=== PATIENT | female | born 1965 | race Caucasian/White ===

== ENCOUNTER 2019-05-09 07:51 | Outpatient (CLI) | payer OTHER ==
--- NOTE | 2019-05-28 17:00 | MMO ---
Bilateral MAMMO Bilat Screen [facility]. CLINICAL HISTORY: Patient is 54 years old and is seen for screening. The patient has no family history of breast cancer. The patient has no personal history of cancer. The patient has a history of Explantation in 2007, Implants in 2007 and Implants in 1998. VIEWS: The views performed were: bilateral craniocaudal with tomosynthesis and bilateral mediolateral oblique with tomosynthesis. This study has been interpreted with the assistance of computer-aided detection. MAMMOGRAM FINDINGS: There are scattered fibroglandular densities. Normal implants are present. Benign calcifications are noted bilaterally. There are no suspicious masses, suspicious calcifications, or new areas of architectural distortion. IMPRESSION: THERE IS NO MAMMOGRAPHIC EVIDENCE OF MALIGNANCY. A ROUTINE FOLLOW-UP MAMMOGRAM IN 1 YEAR IS RECOMMENDED. THE RESULTS OF THIS EXAM WERE SENT TO THE PATIENT. ACR BI-RADS Category 2 - Benign finding MAMMOGRAPHY NOTE: 1. A negative mammogram report should not delay a biopsy if a dominant of clinically suspicious mass is present. 2. Approximately 10% to 15% of breast cancers are not detected by mammography. 3. Adenosis and dense breasts may obscure an underlying neoplasm. Reported by: PAO GILMORE MD Electonically Signed: [id number]
== END 2019-05-09 07:52 | disposition home or self-care (01) ==
LOC: BICMAMMO 07:51
PROVIDERS: ATTEND Family Medicine
DX: Z12.31 Encounter for screening mammogram for malignant neoplasm of breast (principal); Z98.82 Breast implant status
CPT/HCPCS: 77063; 77067

== ENCOUNTER 2019-06-10 06:23 | Outpatient (CLI) | payer OTHER ==
[2019-06-10 09:52] LABS: #Basophils 0.1 thou/uL (0.0-0.2); #Eosinphils 0.1 thou/uL (0.0-0.7); #Lymphocytes 1.8 thou/uL (1.20-3.40); #Monocytes 0.5 thou/uL (0.11-0.59); #Neutrophils 4.2 thou/uL (1.40-6.50); %Basophils 1.1 % (0.0-1.0); %Eosinophils 1.6 % (0.0-10.0); %Lymphocytes 27.1 % (21.0-51.0); %Monocytes 6.9 % (0.0-10.0); %Neutrophils 63.4 % (42.0-75.0); Hemoglobin 12.5 g/dL (12.0-16.0); Mean Corpuscular HGB CONC 34.1 g/dL (32.0-36.0); Mean Corpuscular Hemoglobin 30.9 pg (27.0-31.0); Mean Corpuscular Volume 90.8 fL (78.0-98.0); Mean Platelet Volume 7.4 fL (7.4-10.4); Platelet Count 265 thou/uL (130-400); RBC Distribution Width 11.1 % (11.5-14.5); Red Blood Cell (RBC) Count 4.05 mill/uL (4.20-5.40); White Blood Cell (WBC) Count 6.6 thou/uL (4.8-10.8)
[2019-06-10 10:14] LABS: Anion Gap 12 mmol/L (10-20); BUN (Urea Nitrogen) 9 mg/dL (9.8-20.1); Calc. Creatinine Clearance 0 mL/min (70-130); Calcium 9.7 mg/dL (7.8-10.44); Carbon Dioxide 26 mmol/L (22-29); Chloride 103 mmol/L (98-107); Estimated GFR-MDRD 87; Glucose 94 mg/dL (70-105); Potassium 3.9 mmol/L (3.5-5.1); Sodium 137 mmol/L (136-145)
== END 2019-06-10 06:24 | disposition home or self-care (01) ==
LOC: LABBT 06:23
PROVIDERS: ATTEND Orthopaedic Surgery
DX: Z01.818 Encounter for other preprocedural examination (principal); M23.41 Loose body in knee, right knee
CPT/HCPCS: 80048; 85025; 93005; 93010

== ENCOUNTER 2019-06-12 05:49 | Day surgery (SDC) | payer OTHER ==
[2019-06-10 08:36] VITALS: BMI 25.1
[2019-06-12] MEDS ORDERED: Bupivacaine/Epinephrine 0.25% 30 ML VIAL ONE (06:53)
[2019-06-12] MEDS ORDERED: Bupivacaine HCl 0.5%/Epinephrine 1:200,000/PF 30 ml Vial ONE (06:53)
[2019-06-12] MEDS ORDERED: Fentanyl 100 MCG/2 ML VIAL ONE (07:39)
--- NOTE | 2019-06-12 10:38 | OP ---
DATE OF PROCEDURE: 06/12/2019 PREOPERATIVE DIAGNOSIS: Arthritic change, right knee, with multiple small cartilaginous loose bodies and unstable chondral flaps. POSTOPERATIVE DIAGNOSES: Arthritic change, right knee, with multiple small cartilaginous loose bodies and unstable chondral flaps, areas include grade 3 and 4 changes to the lateral tibial plateau, lateral femoral condyle, the trochlea, and the patella. The patient also noted to have an impinging osteophyte on the anterior tibia. PROCEDURES PERFORMED: Right knee arthroscopy, debridement, and shaving. MANAGER FRONT: None. ESTIMATED BLOOD LOSS: Minimal. COMPLICATIONS: None. ANESTHESIA: The patient did have a general anesthetic with a local knee block. DISPOSITION: She went back to Day Stay in stable condition. INDICATIONS: A 54-year-old active female who has been having problems for years and continues to have pain, catching, and swelling of the knee. MRI showed multiple areas of chondral damage in the knee, and at this time, we feel that she would benefit from cleaning up the knee to rid her off her effusions and sharp pain. DESCRIPTION OF PROCEDURE: After all appropriate consent forms were explained and signed, she was taken to the operative room and at this time was given general anesthetic. Once the level of anesthesia was appropriate, a tourniquet was placed on the right thigh and the leg was then placed in the arthroscopic leg landa. The limb was then prepped and draped in standard surgical fashion. Limb was exsanguinated and tourniquet was taken up to 250 mmHg. At this time, an inferolateral portal was established. Scope was placed into the knee joint. A needle localization was then used to make our medial working portal and diagnostic arthroscopy commenced in the notch. ACL and PCL were probed and found to be intact. There was impinging osteophyte at the base of the ACL. This was taken down with a shaver. The medial compartment was evaluated and was felt to be intact including the articular cartilage of the femur and tibia as well as the medial meniscus. The lateral compartment showed the lateral meniscus to be intact, Popliteus was intact, overall, the femur was in good condition; however, there was a large area of grade 3 and 4 chondral wear right in the middle of the tibial plateau. Unstable chondral flaps were noted and debrided back to a stable base. There were also multiple small cartilaginous bodies found underneath the meniscus. At this time, we swept through both gutters, and while there were osteophytes noted both sides on the lateral side, there was a couple small pieces of cartilage, which again were removed with a shaver. The patellofemoral joint was then evaluated and she was found to have a large area of grade 4 changes on the patella with minimal unstable cartilage flaps; however, the trochlea had a lot of unstable cartilage flaps with grade 4 and 3 changes throughout. All unstable chondral flaps were debrided, leaving all viable good cartilage alone. We went through the knee, making sure we washed it out thoroughly. We then removed the scope, drained the knee, closed these portals with simple nylon stitch. Bulky sterile dressing was then applied and the tourniquet was let down. Toes pinked up nicely. The patient was awakened. She was taken to recovery room in stable condition. All counts were correct at the end of the case and she received preoperative IV antibiotics. Job ID: [id number]
== END 2019-06-12 10:00 | disposition home or self-care (01) ==
LOC: SDC 05:49
PROVIDERS: ATTEND Orthopaedic Surgery
PROC: 0SBC4ZZ Excision of Right Knee Joint, Percutaneous Endoscopic Approach (ICD-10-PCS; principal; 2019-06-12)
DX: M17.11 Unilateral primary osteoarthritis, right knee (principal); Z79.899 Other long term (current) drug therapy
CPT/HCPCS: J0670; J0690; J3010

== ENCOUNTER 2019-06-17 09:45 | Emergency (ER) | payer OTHER ==
--- NOTE | 2019-06-17 11:32 | ULT ---
DOPPLER DUPLEX VENOUS ULTRASOUND RIGHT LOWER EXTREMITY: CPT: 20468 ICD-10-PCS: B54D INDICATIONS: Pain. Edema. TECHNIQUE: Color-flow Doppler, spectral wave-form analysis of pulsed Doppler, and garnica-scale imaging with compre ssion and augmentation, were used to evaluate the bilateral common femoral, femoral, popliteal, poste rior tibial and superficial femoral, veins and the proximal portions of the profunda femoral and grea ter saphenous veins. FINDINGS: There is appropriate compressibility and flow within the imaged deep venous system of the right lower extremity. IMPRESSION: No deep venous thrombosis. POS: [facility]
[2019-06-17] MEDS ORDERED: HYDROcodone/Acetaminophen 5/325 mg Tablet ONE (12:57)
[2019-06-17] MEDS ORDERED: Ketorolac Tromethamine 30 MG/ML VIAL ONE (13:01)
== END 2019-06-17 13:24 | disposition home or self-care (01) ==
LOC: ERS 09:45
DX: S80.11XA Contusion of right lower leg, initial encounter (principal); G89.18 Other acute postprocedural pain; E03.9 Hypothyroidism, unspecified; Z79.899 Other long term (current) drug therapy; X58.XXXA Exposure to other specified factors, initial encounter
CPT/HCPCS: 96372; J1885

== ENCOUNTER 2020-03-24 11:55 | Emergency (ER) | payer OTHER ==
[2020-03-24] MEDS ORDERED: Morphine 4 MG/ML VIAL ONE (12:40)
--- NOTE | 2020-03-24 12:53 | RAD ---
EXAM: 4 views of the right knee HISTORY: Knee pain and posterior thigh pain COMPARISON: None FINDINGS: No knee effusion is seen. There is no evidence of acute fracture or dislocation. No signifi cant degenerative changes are seen. No soft tissue swelling is present. IMPRESSION: No evidence of acute osseous abnormality.
== END 2020-03-24 14:17 | disposition home or self-care (01) ==
LOC: ERS 11:55
DX: S76.311A Strain of muscle, fascia and tendon of the posterior muscle group at thigh level, right thigh, initial encounter (principal); E03.9 Hypothyroidism, unspecified; Z79.899 Other long term (current) drug therapy; X50.1XXA Overexertion from prolonged static or awkward postures, initial encounter
CPT/HCPCS: 96372; J2270

== ENCOUNTER 2020-04-30 07:48 | Outpatient (CLI) | payer BC, OTHER ==
[2020-04-30 14:29] LABS: INR-International Normal Ratio 0.9; Prothrombin Time 12.5 sec (12.0-14.7)
[2020-04-30 14:36] LABS: #Eosinphils 0.1 thou/uL (0.0-0.7); #Lymphocytes 2.1 thou/uL (1.20-3.40); #Monocytes 0.4 thou/uL (0.11-0.59); #Neutrophils 2.7 thou/uL (1.40-6.50); %Basophils 0.3 % (0.0-1.0); %Eosinophils 2.5 % (0.0-10.0); %Lymphocytes 39.9 % (21.0-51.0); %Monocytes 7.3 % (0.0-10.0); Hemoglobin 13.8 g/dL (12.0-16.0); Mean Corpuscular Hemoglobin 31.5 pg (27.0-31.0); Mean Platelet Volume 7.7 fL (7.4-10.4); Platelet Count 307 thou/uL (130-400); RBC Distribution Width 11.1 % (11.5-14.5); Red Blood Cell (RBC) Count 4.37 mill/uL (4.20-5.40); White Blood Cell (WBC) Count 5.3 thou/uL (4.8-10.8)
[2020-04-30 14:48] LABS: Bacteria/HPF None Seen HPF (None Seen); Bilirubin Negative (Negative); Blood, Urine Negative (Negative); Clarity Clear (Clear); Glucose, Urine (Dipstick) Normal (Negative); Ketone, Urine Negative (Negative); Leukocyte 25 Leu/uL (Negative); Nitrite Negative (Negative); Protein, Urine (Dipstick) Negative (Neg-Trace); RBC/HPF 0-3 HPF (0-3); Specific Gravity, Urine 1.006 (1.002-1.036); Squamous Epithelial 0-3 HPF (0-3); Urobilinogen Normal mg/dL (Less than 2); WBC/HPF 0-3 HPF (0-3); pH, Urine 7.5 (5.0-9.0)
[2020-04-30 15:15] LABS: Anion Gap 16 mmol/L (10-20); BUN (Urea Nitrogen) 13 mg/dL (9.8-20.1); Calc. Creatinine Clearance 0 mL/min (70-130); Calcium 10.1 mg/dL (7.8-10.44); Carbon Dioxide 25 mmol/L (22-29); Chloride 101 mmol/L (98-107); Estimated GFR-MDRD 79; Glucose 91 mg/dL (70-105); Potassium 4.5 mmol/L (3.5-5.1); Sodium 137 mmol/L (136-145)
[2020-05-01 12:32] LABS: SARS-CoV-2 MS2 Positive; SARS-CoV-2 N Gene Negative; SARS-CoV-2 S Gene Negative; SARS-CoV-2 by NAA Not Detected (NotDetected); SARS-CoV-2 orf1ab Negative
--- NOTE | 2020-05-03 16:04 | EKG ---
Test Reason : Blood Pressure : / mmHG Vent. Rate : 087 BPM Atrial Rate : 087 BPM P-R Int : 136 ms QRS Dur : 076 ms QT Int : 364 ms P-R-T Axes : 075 084 077 degrees QTc Int : 438 ms Normal sinus rhythm Septal infarct , age undetermined Abnormal ECG No previous ECGs available Confirmed by Liang GONZALEZ ([id number]) on 05/03/2020 4:03:51 PM Referred By: ALLA Confirmed By:Liang GONZALEZ
== END 2020-04-30 07:49 | disposition home or self-care (01) ==
LOC: LABBT 07:48
PROVIDERS: ATTEND Orthopaedic Surgery
DX: Z01.818 Encounter for other preprocedural examination (principal); Z20.828 Contact with and (suspected) exposure to other viral communicable diseases; M17.11 Unilateral primary osteoarthritis, right knee
CPT/HCPCS: 80048; 81001; 85025; 85610; 87081; 87635; 93005; 93010; U0003

== ENCOUNTER 2020-05-04 05:30 | Day surgery (SDC) | payer BC, OTHER ==
[2020-04-30 09:18] VITALS: BMI 25.1
[2020-05-04] MEDS ORDERED: Bupivacaine PF 0.5% 30 ML VIAL ONE (06:28)
[2020-05-04] MEDS ORDERED: Vancomycin 1 GM/200 ML BAG ONE (06:30)
[2020-05-04] MEDS ORDERED: Sodium Chloride 0.9% 100 ML ONE (06:30)
[2020-05-04] MEDS ORDERED: Tranexamic Acid 1,000 MG/10 ML VIAL ONE ×2 (06:30→09:34)
[2020-05-04] MEDS ORDERED: Midazolam HCl 2 mg/2 ml Vial ONE ×2 (06:39→07:21)
[2020-05-04] MEDS ORDERED: Lidocaine 1% (PF) 30 ML VIAL ONE (06:39)
[2020-05-04] MEDS ORDERED: Fentanyl 100 MCG/2 ML VIAL ONE ×6 (06:39→10:12)
[2020-05-04] MEDS ORDERED: diphenhydrAMINE 25 MG CAP PO PRN ×2 (07:07→10:30)
[2020-05-04] MEDS ORDERED: Acetaminophen 325 MG TAB PO PRN ×2 (07:07→07:44)
[2020-05-04] MEDS ORDERED: traMADol HCl 50 MG TAB PO PRN ×3 (07:07→07:44)
[2020-05-04] MEDS ORDERED: Ondansetron PF 4 MG/2 ML Vial IVP PRN ×3 (07:07→10:30)
[2020-05-04] MEDS ORDERED: Zolpidem Tartrate 5 MG TAB PO PRN ×3 (07:07→10:30)
[2020-05-04] MEDS ORDERED: HYDROcodone/Acetaminophen 10/325 mg Tablet PO PRN ×4 (07:07→07:44)
[2020-05-04] MEDS ORDERED: Promethazine HCl 25 MG/ML VIAL IM PRN ×3 (07:07→10:30)
[2020-05-04] MEDS ORDERED: Fentanyl 100 MCG/2 ML VIAL SLOW IVP PRN (07:07)
[2020-05-04] MEDS ORDERED: Tranexamic Acid 1,000 MG in Sodium Chloride 0.9% 100 ML IVPB SCH (07:15)
[2020-05-04] MEDS ORDERED: Ropivacaine HCl/PF 250 ML in Premix Bag 1 BAG NERVE BLCK SCH (07:44)
[2020-05-04] MEDS ORDERED: Fentanyl 100 MCG/2 ML VIAL IV PRN (07:45)
[2020-05-04] MEDS ORDERED: Multivitamin W/ Minerals 1 TAB PO SCH (09:00)
[2020-05-04] MEDS ORDERED: Meperidine HCl/PF 25 MG/ML VIAL ONE (09:16)
[2020-05-04] MEDS ORDERED: Ropivacaine 0.2% HCl/PF (40 MG/20 ML VIAL) ONE (09:19)
[2020-05-04] MEDS ORDERED: Dexamethasone 20 MG/5 ML VIAL ONE (09:19)
[2020-05-04] MEDS ORDERED: Ketorolac Tromethamine 30 MG/ML VIAL ONE (09:19)
[2020-05-04] MEDS ORDERED: PROPOFOL 200 MG/20 ML VIAL ONE (09:19)
[2020-05-04] MEDS ORDERED: Bupivacaine HCl 0.5%/Epinephrine 1:200,000/PF 30 ml Vial ONE (09:19)
[2020-05-04] MEDS ORDERED: Ondansetron PF 4 MG/2 ML Vial ONE (09:19)
[2020-05-04] MEDS ORDERED: Lidocaine 1% PF 5 ML VIAL ONE (09:19)
[2020-05-04] MEDS ORDERED: HYDROmorphone 0.5 MG/0.5 ML SYRINGE ONE ×4 (10:26→11:02)
[2020-05-04] MEDS ORDERED: HYDROmorphone 10 mg/100 ml CADD IVPB PRN (10:30)
[2020-05-04] MEDS ORDERED: Communication Order-Pharmacy FS SCH (10:30)
[2020-05-04] MEDS ORDERED: diphenhydrAMINE 50 MG/ML VIAL IM PRN (10:30)
[2020-05-04] MEDS ORDERED: Naloxone HCl 0.4 mg/ml Vial IV PRN (10:30)
[2020-05-04] MEDS ORDERED: diphenhydrAMINE 50 MG/ML VIAL IVP PRN (10:30)
[2020-05-04] MEDS ORDERED: Ketorolac Tromethamine 30 MG/ML VIAL IVP SCH (12:00)
[2020-05-04] MEDS: Multivitamin W/ Minerals 1 TAB PO SCH (13:09)
[2020-05-04] MEDS: Sodium Chloride 0.9% 1,000 ML IV SCH ×2 (14:17→14:26)
[2020-05-04] MEDS: Ketorolac Tromethamine 30 MG/ML VIAL IVP SCH ×2 (14:18→21:12)
[2020-05-04] MEDS: CEFAZOLIN 2 GM in Premix Bag 1 BAG IVPB SCH ×2 (14:20→23:40)
[2020-05-04] MEDS ORDERED: Vancomycin 1 GM in Premix Bag 1 BAG IVPB SCH (19:00)
[2020-05-04] MEDS: Aspirin 81 mg Enteric Coated Tablet PO SCH (21:12)
[2020-05-04] MEDS: Ferrous Gluconate 324 MG TAB PO SCH (21:12)
[2020-05-04] MEDS: Polyethylene Glycol 3350 17 GM Packet PO SCH (21:12)
[2020-05-04] MEDS: Senokot S 8.6-50 MG TAB PO SCH (21:12)
[2020-05-05 05:21] LABS: Hemoglobin 10.1 g/dL (12.0-16.0); Mean Corpuscular HGB CONC 33.4 g/dL (32.0-36.0); Mean Corpuscular Hemoglobin 30.9 pg (27.0-31.0); Mean Corpuscular Volume 92.7 fL (78.0-98.0); Mean Platelet Volume 7.3 fL (7.4-10.4); Platelet Count 219 thou/uL (130-400); Red Blood Cell (RBC) Count 3.25 mill/uL (4.20-5.40); White Blood Cell (WBC) Count 6.7 thou/uL (4.8-10.8)
[2020-05-05] MEDS: HYDROmorphone 10 mg/100 ml CADD IV PRN ×2 (05:40→20:11)
[2020-05-05] MEDS: Ketorolac Tromethamine 30 MG/ML VIAL IVP SCH ×3 (05:47→22:34)
[2020-05-05] MEDS ORDERED: Levothyroxine Sodium 75 MCG TAB PO SCH (06:00)
[2020-05-05] MEDS: Sodium Chloride 0.9% 1,000 ML IV SCH ×2 (07:44→12:57)
[2020-05-05] MEDS: Multivitamin W/ Minerals 1 TAB PO SCH (08:28)
[2020-05-05] MEDS: Senokot S 8.6-50 MG TAB PO SCH ×2 (08:28→20:02)
[2020-05-05] MEDS: Aspirin 81 mg Enteric Coated Tablet PO SCH ×2 (08:28→20:02)
[2020-05-05] MEDS: Polyethylene Glycol 3350 17 GM Packet PO SCH ×2 (08:28→20:02)
[2020-05-05] MEDS: Ferrous Gluconate 324 MG TAB PO SCH ×2 (08:28→20:02)
--- NOTE | 2020-05-05 17:30 | OP ---
DATE OF PROCEDURE: 05/04/2020 PREOPERATIVE DIAGNOSIS: Right knee osteoarthrosis. POSTOPERATIVE DIAGNOSIS: Right knee osteoarthrosis. PROCEDURE PERFORMED: Right total knee replacement using [employer] pinless navigation. MUD ANALYSIS WELL LOGGING OPERATOR: Elvin Sullivan PA-C [employer] surgeon was present throughout the procedure, including the approach, placement of the implants, and the closure. ESTIMATED BLOOD LOSS: Minimal. COMPLICATIONS: None. ANESTHESIA: She did have a general anesthetic. She had a preoperative block. IMPLANTS: To the right knee, [employer] total knee system, femur size 5 right cruciate-retaining femur, tibia was a size 4 primary tibial baseplate with a 4 x 9 mm CS X3 tibial poly and a symmetric 27 x 8 X3 patella. TOURNIQUET TIME: DISPOSITION: She went to recovery room in stable condition. INDICATIONS: This 55-year-old female, who has failed nonoperative treatment including arthroscopy, injections, and therapy. At this time, she opted to have her knee replaced. DESCRIPTION OF PROCEDURE: After all appropriate consent forms were explained and signed, the patient was taken back to the operating room and at this time was given general anesthetic. Once the level of anesthesia was appropriate, a well-padded tourniquet was placed on the right leg, and the leg was then prepped and draped in standard surgical fashion. The limb was exsanguinated and tourniquet taken up to 300 mmHg. Midline incision was made with a 10 blade down through the skin and subcutaneous tissue. Bovie electrocautery was used to coagulate any brisk venous bleeding. A new blade was used to make a medial parapatellar arthrotomy. Small subperiosteal release was performed medially and excess fat pad was removed. The knee was flexed up to gain access to the femur. The femur was navigated and distal femoral resection was made. Epicondylar access was used to align our sizing jig and this was pinned in place. We sized our femur to be a size 5 right cruciate-retaining femur. 4:1 cutting block was applied and pinned. Anterior and posterior chamfer cuts were then made. We navigated out our proximal tibia and made our proximal tibial resection. Spreaders were used to remove any posterior osteophytes off the back of the femur as well as remaining meniscal tissue. A long alignment tremayne was then used to achieve correct rotation of our tibial baseplate and a size 4 primary tibial baseplate was chosen. This was pinned in place. We trialed the polyethylene and a 4 x 9 mm CS X3 tibial polyethylene gave us full extension and good stability throughout range of motion. Two towel clips and a saw were used to cut our patella. Three lug nuts were drilled and symmetric 27 x 8 X3 patella was trialed which sat nicely in the trochlear groove. We then drilled our femur and punched our tibia. All components were removed. The knee was thoroughly irrigated and dried. Cement was mixed into the cement gun on the back table. Components were then placed. The knee was held out in full extension until the cement had dried. All excess bone cement was removed. Multiple #2 Vicryl stitches as well as a Quill were used to close our extensor mechanism. 0 Quill followed by a running Monoderm was then used to close the skin. Surgicel glue was then used on the skin. Once this had dried, soft tissue dressing was applied to the limb, tourniquet was let down, and the toes pinked up nicely. The patient was then awakened and taken to the recovery room in stable condition. All counts were correct at the end of the case. The patient did receive preoperative IV antibiotics. The patient was injected with Marcaine for postoperative pain relief. Job ID: [id number] [facility]
[2020-05-05] MEDS ORDERED: Simethicone Chewable 80 MG TAB PO PRN (17:45)
[2020-05-06] MEDS: Sodium Chloride 0.9% 1,000 ML IV SCH (00:53)
[2020-05-06 07:07] LABS: Hemoglobin 9.9 g/dL (12.0-16.0); Mean Corpuscular HGB CONC 33.8 g/dL (32.0-36.0); Mean Corpuscular Volume 91.9 fL (78.0-98.0); Mean Platelet Volume 7.4 fL (7.4-10.4); Platelet Count 212 thou/uL (130-400); RBC Distribution Width 10.9 % (11.5-14.5); Red Blood Cell (RBC) Count 3.18 mill/uL (4.20-5.40); White Blood Cell (WBC) Count 6.1 thou/uL (4.8-10.8)
[2020-05-06] MEDS ORDERED: HYDROcodone/Acetaminophen 10/325 mg Tablet PO PRN ×2 (10:57→10:58)
[2020-05-06] MEDS ORDERED: traMADol HCl 50 MG TAB PO PRN (10:58)
--- NOTE | 2020-05-06 11:57 | PRG ---
DATE OF SERVICE: 05/05/2020 SUBJECTIVE: Marie Treadwell is a 55-year-old female, postop day #1 from a right total knee arthroplasty. She is doing relatively well. She has no complaints. She has already ambulated up to 250 feet independently. OBJECTIVE: VITAL SIGNS: Temperature 98.7, pulse 90, respiratory rate 16 and nonlabored, O2 saturation 95% on room air, blood pressure 102/65. GENERAL: She is alert and oriented to person, place, time, and situation. Responsive and appropriate with examiner, conversive, polite. EXTREMITIES: Incision is clean. No strikethrough. No erythema. No malrotation. She is neurovascularly intact in the right lower extremity. LABORATORY DATA: Hemoglobin and hematocrit of 10.1 and 30.1. IMPRESSION: A 55-year-old female, postop day #1 right total knee arthroplasty, doing well. PLAN: Continue current care. Expected discharge, tomorrow. Job ID: [id number]
[2020-05-06 12:27] VITALS: BP 116/79; TEMP 98
== END 2020-05-06 15:18 | disposition home or self-care (01) ==
LOC: SDC 05:30 → SJJU 07:07 → EDSTATUS 10:15 → SDC 05-06 15:18
PROVIDERS: ATTEND Orthopaedic Surgery
PROC: 8E0YXBZ Computer Assisted Procedure of Lower Extremity (ICD-10-PCS; principal; 2020-05-04)
PROC: 0SRC0JZ Replacement of Right Knee Joint with Synthetic Substitute, Open Approach (ICD-10-PCS; principal; 2020-05-04)
DX: M17.11 Unilateral primary osteoarthritis, right knee (principal); Z79.899 Other long term (current) drug therapy
CPT/HCPCS: 36415; 85027; C1713; C1776; J0670; J0690; J1100; J1170; J1885; J2001; J2175; J2250; J2405; J2704; J2795; J3010; J3370; J3490; S0020

== ENCOUNTER 2020-12-09 08:30 | Outpatient (CLI) | payer BC, OTHER | END 2020-12-09 08:31 | disposition home or self-care (01) | LOC: BICMAMMO 08:30 | PROVIDERS: ATTEND Internal Medicine | DX: Z12.31 Encounter for screening mammogram for malignant neoplasm of breast (principal) | CPT/HCPCS: 77063; 77067 ==

== ENCOUNTER 2021-05-17 09:48 | Outpatient (CLI) | payer BC, OTHER | END 2021-05-17 09:49 | disposition home or self-care (01) | LOC: BICMRI 09:48 | PROVIDERS: ATTEND Anesthesiology | DX: M47.26 Other spondylosis with radiculopathy, lumbar region (principal) | CPT/HCPCS: 72148 ==

== ENCOUNTER 2021-07-06 07:56 | Outpatient (CLI) | payer BC, OTHER | END 2021-07-06 07:57 | disposition home or self-care (01) | LOC: BICMRI 07:56 | PROVIDERS: ATTEND Orthopaedic Surgery | DX: M23.92 Unspecified internal derangement of left knee (principal); S83.242A Other tear of medial meniscus, current injury, left knee, initial encounter; S83.282A Other tear of lateral meniscus, current injury, left knee, initial encounter; M22.2X2 Patellofemoral disorders, left knee; M25.462 Effusion, left knee; M71.22 Synovial cyst of popliteal space [Baker], left knee ==

== ENCOUNTER 2021-07-28 13:19 | Outpatient (CLI) | payer BC, OTHER ==
[2021-07-28 14:12] LABS: Bilirubin Neg (Negative); Blood, Urine Negative (Negative); Glucose, Urine (Dipstick) Normal (Negative); Ketone, Urine Negative (Negative); Leukocyte Negative (Negative); Nitrite Negative (Negative); Protein, Urine (Dipstick) Negative (Neg-Trace); Urobilinogen Normal mg/dL (Less than 2)
[2021-07-28 14:13] LABS: Clarity Clear (Clear)
[2021-07-28 14:15] LABS: #Eosinphils 0.1 10x3/uL (0.0-0.5); #Monocytes 0.5 10x3/uL (0.0-1.1); #Neutrophils 2.3 10x3/uL (1.5-8.4); %Basophils 0.4 % (0.0-2.0); %Eosinophils 1.3 % (0.0-6.0); %Lymphocytes 46.5 % (18.0-47.0); %Monocytes 8.5 % (0.0-10.0); %Neutrophils 43.1 % (40.0-75.0); Hemoglobin 11.8 g/dL (12.0-15.5); Mean Corpuscular Hemoglobin 30.1 pg (27.0-33.0); Mean Corpuscular Volume 88.5 fl (81.6-98.3); Mean Platelet Volume 9.6 fl (7.4-10.4); Platelet Count 297 10x3/uL (150-450); RBC Distribution Width 11.9 % (11.5-14.5); Red Blood Cell (RBC) Count 3.92 10x6/uL (3.90-5.03); White Blood Cell (WBC) Count 5.3 10x3/uL (3.5-10.5)
[2021-07-28 14:29] LABS: Anion Gap 13 mmol/L (10-20); BUN (Urea Nitrogen) 13 mg/dL (9.8-20.1); Calc. Creatinine Clearance 0 mL/min (70-130); Calcium 9.7 mg/dL (7.8-10.44); Carbon Dioxide 25 mmol/L (22-29); Chloride 105 mmol/L (98-107); Glucose 83 mg/dL (70-105); Potassium 4.2 mmol/L (3.5-5.1); Sodium 139 mmol/L (136-145)
[2021-07-28 14:34] LABS: Prothrombin Time 10.6 sec (9.5-12.1)
[2021-07-28 23:10] LABS: SARS-CoV-2 PCR by NAA Not Detected (NotDetected)
== END 2021-07-28 13:20 | disposition home or self-care (01) ==
LOC: LABBT 13:19
PROVIDERS: ATTEND Urology
DX: Z01.818 Encounter for other preprocedural examination (principal); M17.12 Unilateral primary osteoarthritis, left knee; Z20.822 Contact with and (suspected) exposure to COVID-19
CPT/HCPCS: 71046; 80048; 81003; 85025; 85610; 86850; 86900; 86901; 87081; 93005; 93010; U0003; U0005

== ENCOUNTER 2021-08-02 07:05 | Observation (INO) | payer BC, OTHER ==
[2021-07-28 14:12] LABS: Bilirubin Neg (Negative); Blood, Urine Negative (Negative); Glucose, Urine (Dipstick) Normal (Negative); Ketone, Urine Negative (Negative); Leukocyte Negative (Negative); Nitrite Negative (Negative); Protein, Urine (Dipstick) Negative (Neg-Trace); Urobilinogen Normal mg/dL (Less than 2)
[2021-07-28 14:13] LABS: Clarity Clear (Clear)
[2021-07-28 14:15] LABS: #Eosinphils 0.1 10x3/uL (0.0-0.5); #Monocytes 0.5 10x3/uL (0.0-1.1); #Neutrophils 2.3 10x3/uL (1.5-8.4); %Basophils 0.4 % (0.0-2.0); %Eosinophils 1.3 % (0.0-6.0); %Lymphocytes 46.5 % (18.0-47.0); %Monocytes 8.5 % (0.0-10.0); %Neutrophils 43.1 % (40.0-75.0); Hemoglobin 11.8 g/dL (12.0-15.5); Mean Corpuscular Hemoglobin 30.1 pg (27.0-33.0); Mean Corpuscular Volume 88.5 fl (81.6-98.3); Mean Platelet Volume 9.6 fl (7.4-10.4); Platelet Count 297 10x3/uL (150-450); RBC Distribution Width 11.9 % (11.5-14.5); Red Blood Cell (RBC) Count 3.92 10x6/uL (3.90-5.03); White Blood Cell (WBC) Count 5.3 10x3/uL (3.5-10.5)
[2021-07-28 14:29] LABS: Anion Gap 13 mmol/L (10-20); BUN (Urea Nitrogen) 13 mg/dL (9.8-20.1); Calc. Creatinine Clearance 0 mL/min (70-130); Calcium 9.7 mg/dL (7.8-10.44); Carbon Dioxide 25 mmol/L (22-29); Chloride 105 mmol/L (98-107); Glucose 83 mg/dL (70-105); Potassium 4.2 mmol/L (3.5-5.1); Sodium 139 mmol/L (136-145)
[2021-07-28 14:34] LABS: Prothrombin Time 10.6 sec (9.5-12.1)
[2021-07-28 23:10] LABS: SARS-CoV-2 PCR by NAA Not Detected (NotDetected)
[2021-07-29 13:44] VITALS: BMI 26.6
[2021-08-02] MEDS ORDERED: Tranexamic Acid 1,000 MG/10 ML VIAL ONE ×2 (07:33→12:03)
[2021-08-02] MEDS ORDERED: Sodium Chloride 0.9% 100 ML ONE (07:33)
[2021-08-02] MEDS ORDERED: ceFAZolin 2 GM/DEX 5% 100 ML BAG ONE (07:33)
[2021-08-02] MEDS ORDERED: Vancomycin HCl 1.5 GM in Sodium Chloride 0.9% 250 ML 300 ML IVPB SCH ×2 (07:45→21:00)
[2021-08-02] MEDS ORDERED: Fentanyl 100 MCG/2 ML VIAL ONE ×3 (08:02→11:37)
[2021-08-02] MEDS ORDERED: Midazolam HCl 2 mg/2 ml Vial ONE (08:02)
[2021-08-02] MEDS ORDERED: Bupivacaine PF 0.5% 30 ML VIAL ONE (09:13)
[2021-08-02] MEDS ORDERED: Ondansetron PF 4 MG/2 ML Vial ONE (09:35)
[2021-08-02] MEDS ORDERED: Lidocaine 1% PF 5 ML VIAL ONE (09:35)
[2021-08-02] MEDS ORDERED: Bupivacaine HCl 0.5%/Epinephrine 1:200,000/PF 30 ml Vial ONE (09:35)
[2021-08-02] MEDS ORDERED: Dexamethasone 20 MG/5 ML VIAL ONE (09:35)
[2021-08-02] MEDS ORDERED: PROPOFOL 200 MG/20 ML VIAL ONE (09:35)
[2021-08-02] MEDS ORDERED: diphenhydrAMINE 25 MG CAP PO PRN (09:57)
[2021-08-02] MEDS ORDERED: HYDROcodone/Acetaminophen 10/325 mg Tablet PO PRN ×3 (09:57→12:00)
[2021-08-02] MEDS ORDERED: traMADol HCl 50 MG TAB PO PRN ×3 (09:57→12:00)
[2021-08-02] MEDS ORDERED: Ondansetron PF 4 MG/2 ML Vial IVP PRN ×2 (09:57→12:00)
[2021-08-02] MEDS ORDERED: Zolpidem Tartrate 5 MG TAB PO PRN ×2 (09:57→12:00)
[2021-08-02] MEDS ORDERED: Fentanyl 100 MCG/2 ML VIAL SLOW IVP PRN ×2 (09:57→11:53)
[2021-08-02] MEDS ORDERED: Promethazine HCl 25 MG/ML VIAL IM PRN ×3 (09:57→12:00)
[2021-08-02] MEDS ORDERED: Acetaminophen 325 MG TAB PO PRN (09:57)
[2021-08-02] MEDS ORDERED: Tranexamic Acid 1,000 MG in Sodium Chloride 0.9% 100 ML IVPB SCH (10:00)
[2021-08-02] MEDS ORDERED: HYDROmorphone 2 MG/ML VIAL SLOW IVP PRN (11:32)
[2021-08-02] MEDS ORDERED: Ondansetron HCl/PF 4 MG/2 ML Vial IVP PRN (11:32)
[2021-08-02] MEDS ORDERED: Ketorolac Tromethamine 30 MG/ML VIAL IVP PRN (11:32)
[2021-08-02] MEDS ORDERED: Meperidine HCl/PF 25 MG/ML VIAL SLOW IVP PRN (11:32)
[2021-08-02] MEDS ORDERED: Promethazine HCl 25 MG/ML VIAL IVPB PRN (11:32)
[2021-08-02] MEDS ORDERED: Ketorolac Tromethamine 30 MG/ML VIAL ONE (11:37)
[2021-08-02] MEDS ORDERED: Bupivacaine 0.5% 10 ML VIAL ONE (11:59)
[2021-08-02] MEDS ORDERED: Ropivacaine 0.2% 550 ML 550 ML NERVE BLCK SCH (12:00)
[2021-08-02] MEDS ORDERED: HYDROmorphone 0.5 MG/0.5 ML SYRINGE ONE ×4 (12:03→12:37)
[2021-08-02] MEDS ORDERED: Ketorolac Tromethamine 30 MG/ML VIAL IVP SCH (14:00)
[2021-08-02] MEDS: Sodium Chloride 0.9% 1,000 ML IV SCH ×2 (14:37→20:35)
[2021-08-02] MEDS: Ketorolac Tromethamine 30 MG/ML VIAL IVP SCH ×3 (14:37→23:31)
[2021-08-02] MEDS: ceFAZolin Sodium/D5W 2 GM in Premix Bag 1 BAG IVPB SCH ×2 (15:12→23:29)
[2021-08-02] MEDS: HYDROcodone/Acetaminophen 10/325 mg Tablet PO PRN ×2 (15:12→20:36)
[2021-08-02] MEDS: Aspirin 81 mg Enteric Coated Tablet PO SCH (20:35)
[2021-08-02] MEDS: Gabapentin 300 MG CAP PO SCH (20:35)
[2021-08-03] MEDS: HYDROcodone/Acetaminophen 10/325 mg Tablet PO PRN ×3 (03:51→15:52)
[2021-08-03] MEDS: Ketorolac Tromethamine 30 MG/ML VIAL IVP SCH ×3 (05:11→18:24)
[2021-08-03] MEDS: Sodium Chloride 0.9% 1,000 ML IV SCH ×2 (05:12→16:20)
[2021-08-03 05:51] LABS: Mean Corpuscular HGB CONC 34.7 g/dL (32.0-36.0); Mean Corpuscular Hemoglobin 31.9 pg (27.0-31.0); Mean Platelet Volume 6.7 fL (7.4-10.4); Platelet Count 259 thou/uL (130-400); Red Blood Cell (RBC) Count 3.44 mill/uL (4.20-5.40); White Blood Cell (WBC) Count 9.9 thou/uL (4.8-10.8)
[2021-08-03] MEDS ORDERED: Levothyroxine Sodium 75 MCG TAB PO SCH (06:00)
[2021-08-03] MEDS: Aspirin 81 mg Enteric Coated Tablet PO SCH (08:59)
[2021-08-03] MEDS: Ferrous Gluconate 324 MG TAB PO SCH ×2 (08:59→18:23)
[2021-08-03] MEDS: Gabapentin 300 MG CAP PO SCH (09:00)
[2021-08-03] MEDS ORDERED: Non-Formulary Item 1 EACH (Multivitamin [Multi-Vitamin Daily] 1 TABLET Tablet) PO SCH (09:00)
[2021-08-03] MEDS ORDERED: Polyethylene Glycol 3350 17 GM Packet PO SCH (09:00)
[2021-08-03] MEDS ORDERED: Multivitamin W/ Minerals 1 TAB PO SCH (09:00)
[2021-08-03] MEDS ORDERED: Senokot S 8.6-50 MG TAB PO SCH (09:00)
[2021-08-03 16:13] VITALS: BP 114/72; TEMP 97.7
[2021-08-05] MEDS ORDERED: FLU VACC QS2021-22(6MOS UP)/PF 60 MCG/0.5 ML SYRINGE IM ONE (15:15)
== END 2021-08-03 19:26 | disposition home or self-care (01) ==
LOC: SDC 07:05 → INTOOBSV 14:11 → SJJU 14:11
PROVIDERS: ADMIT Orthopaedic Surgery; ATTEND Orthopaedic Surgery
PROC: 0SRD0J9 Replacement of Left Knee Joint with Synthetic Substitute, Cemented, Open Approach (ICD-10-PCS; principal; 2021-08-02)
PROC: 8E0YXBZ Computer Assisted Procedure of Lower Extremity (ICD-10-PCS; 2021-08-02)
PROC: 3E0T3BZ Introduction of Anesthetic Agent into Peripheral Nerves and Plexi, Percutaneous Approach (ICD-10-PCS; 2021-08-02)
DX: M17.12 Unilateral primary osteoarthritis, left knee (principal); M23.301 Other meniscus derangements, unspecified lateral meniscus, left knee; M23.304 Other meniscus derangements, unspecified medial meniscus, left knee; E03.9 Hypothyroidism, unspecified; Z79.1 Long term (current) use of non-steroidal anti-inflammatories (NSAID); Z79.899 Other long term (current) drug therapy; Z91.048 Other nonmedicinal substance allergy status; Z96.651 Presence of right artificial knee joint; Z20.822 Contact with and (suspected) exposure to COVID-19
CPT/HCPCS: 36415; 80048; 81003; 85025; 85027; 85610; 86850; 86900; 86901; 87081; 96365; 96375; 96376; A4306; C1713; C1776; G0378; J1100; J1170; J1885; J2250; J2405; J2704; J2795; J3010; J3370; J3490; J7050; S0020; U0003; U0005

== ENCOUNTER 2022-12-21 08:12 | Outpatient (CLI) | payer OTHER | END 2022-12-21 08:13 | disposition home or self-care (01) | LOC: BICMAMMO 08:12 | PROVIDERS: ATTEND Internal Medicine | DX: M81.0 Age-related osteoporosis without current pathological fracture (principal) | CPT/HCPCS: 77080 ==

== ENCOUNTER 2023-02-03 08:31 | Outpatient (CLI) | payer BC, OTHER | END 2023-02-03 08:32 | disposition home or self-care (01) | LOC: BICMAMMO 08:31 | PROVIDERS: ATTEND Internal Medicine | DX: Z12.31 Encounter for screening mammogram for malignant neoplasm of breast (principal); Z98.82 Breast implant status | CPT/HCPCS: 77063; 77067 ==

== ENCOUNTER 2024-02-28 14:44 | Outpatient (CLI) | payer BC, OTHER | END 2024-02-28 14:45 | disposition home or self-care (01) | LOC: BICMAMMO 14:44 | PROVIDERS: ATTEND Internal Medicine | DX: Z12.31 Encounter for screening mammogram for malignant neoplasm of breast (principal); Z98.82 Breast implant status | CPT/HCPCS: 77063; 77067 ==

== ENCOUNTER 2025-04-18 08:52 | Outpatient (CLI) | payer BC, OTHER ==
[2025-04-18 09:44] LABS: #Basophils Less than 0.03 10x3/uL (0.0-0.2); #Eosinophils 0.05 10x3/uL (0.0-0.7); #Monocytes 0.42 10x3/uL (0.11-0.59); #Neutrophils 2.88 10x3/uL (1.40-6.50); %Basophils 0.2 % (0.0-1.0); %Eosinophils 0.9 % (0.0-10.0); %Lymphocytes 36.0 % (21.0-51.0); %Monocytes 8.0 % (0.0-10.0); %Neutrophils 54.5 % (42.0-75.0); Hematocrit 37.9 % (36.0-47.0); Hemoglobin 12.5 g/dL (12.0-16.0); Mean Corpuscular Hemoglobin 29.7 pg (27.0-31.0); Mean Corpuscular Volume 90.0 fL (78.0-98.0); Platelet Count 289 10x3/uL (130-400); Red Blood Cell (RBC) Count 4.21 mill/uL (4.20-5.40); White Blood Cell (WBC) Count 5.28 10x3/uL (4.8-10.8)
[2025-04-18 10:07] LABS: Anion Gap 15 mmol/L (10-20); BUN (Urea Nitrogen) 17 mg/dL (9.8-20.1); Calc. Creatinine Clearance 0 mL/min (70-130); Calcium 9.8 mg/dL (7.8-10.44); Carbon Dioxide 22 mmol/L (22-29); Chloride 103 mmol/L (98-107); Glucose 91 mg/dL (70-105); Potassium 4.4 mmol/L (3.5-5.1); Sodium 136 mmol/L (136-145)
== END 2025-04-18 08:53 | disposition home or self-care (01) ==
LOC: LABBT 08:52
PROVIDERS: ATTEND Orthopaedic Surgery
DX: Z01.818 Encounter for other preprocedural examination (principal); G56.21 Lesion of ulnar nerve, right upper limb
CPT/HCPCS: 80048; 85025; 93005; 93010

== ENCOUNTER 2025-05-01 05:47 | Day surgery (SDC) | payer BC, OTHER ==
[2025-04-17 12:51] VITALS: BMI 25.1
[2025-05-01] MEDS ORDERED: Ondansetron PF 4 MG/2 ML Vial ONE (06:24)
[2025-05-01] MEDS ORDERED: PROPOFOL 20 ML ONE (06:24)
[2025-05-01] MEDS ORDERED: Lidocaine 1% PF 5 ML VIAL ONE (06:24)
[2025-05-01] MEDS ORDERED: Lidocaine 1% w/Epinephrine 1:100K 20 ML VIAL ONE (06:24)
[2025-05-01] MEDS ORDERED: fentaNYL PF 100 MCG/2 ML SYRINGE ONE (06:24)
[2025-05-01] MEDS ORDERED: Lidocaine 1% (PF) 30 ML VIAL ONE (06:24)
[2025-05-01] MEDS ORDERED: CEFAZOLIN 2 GM VIAL ONE (06:31)
[2025-05-01] MEDS ORDERED: Ketorolac Tromethamine 30 MG (1 mL) VIAL ONE (07:23)
[2025-05-01] MEDS ORDERED: PHENYLEPHRINE-NS 100 MCG/ML 10 ML SYRINGE ONE (07:52)
== END 2025-05-01 10:25 | disposition home or self-care (01) ==
LOC: SDC 05:47
PROVIDERS: ATTEND Orthopaedic Surgery
PROC: 01N40ZZ Release Ulnar Nerve, Open Approach (ICD-10-PCS; principal; 2025-05-01)
DX: G56.21 Lesion of ulnar nerve, right upper limb (principal); Z91.048 Other nonmedicinal substance allergy status
CPT/HCPCS: A6223; J0169; J0665; J1100; J1885; J2405; J2704